=== PATIENT | male | born 1965 | race Hispanic/Latino ===

== ENCOUNTER 2017-10-12 11:49 | Emergency (ER) | payer MEDICARE ==
[~2017-10-12 11:49] MED LIST: ACET1TAB25 PO; ASPI-891 PO; CYCL10TA7 PO; DULO60CA63 PO; GLIP-196 PO; LABE100T PO; LISI-613 PO; METF500T6 PO; NAPR250T4 PO; OMEP40CA37 PO; PROM25TA7 PO
[2017-10-12] MEDS ORDERED: ACETAMINOPHEN-CODEINE 300/30MG TAB ONE (12:20)
== END 2017-10-12 12:38 | disposition home or self-care (01) ==
LOC: EDH 11:49
DX: E11.621 Type 2 diabetes mellitus with foot ulcer (principal); L97.429 Non-pressure chronic ulcer of left heel and midfoot with unspecified severity; I10 Essential (primary) hypertension; Z98.84 Bariatric surgery status; Z87.891 Personal history of nicotine dependence
CPT/HCPCS: 73620

== ENCOUNTER 2017-11-09 18:14 | Emergency (ER) | payer MEDICARE ==
[~2017-11-09 18:14] MED LIST changes: -LABE100T PO; +LABE100T5 PO
[2017-11-09] MEDS ORDERED: ACETAMINOPHEN-CODEINE 300/30MG TAB ONE (18:29)
[2017-11-09 18:57] LABS: BASOPHILS % (AUTO) 1.1 % (0.0-5.0); EOSINOPHILS % (AUTO) 5.9 % (0.0-8.0); HEMATOCRIT 32.4 % (42-54); MEAN CORPUSCULAR HEMOGLOBIN 28.8 pg (27.0-33.0); MEAN CORPUSCULAR HGB CONC 33.2 g/dL (32.0-36.0); MEAN CORPUSCULAR VOLUME 86.8 fL (79-99); MONOCYTES % (AUTO) 6.6 % (3.0-13.0); NEUTROPHILS % (AUTO) 56.4 % (40.0-77.0); PLATELET COUNT (AUTO) 141 K/uL (130-400); RED BLOOD CELL COUNT(AUTO) 3.74 MIL/uL (4.50-6.20); RED CELL DISTRIBUTION WIDTH 13.6 % (11.0-15.5); WHITE BLOOD COUNT (AUTO) 4.5 K/uL (4.8-10.8)
[2017-11-09 19:07] LABS: CARBON DIOXIDE 31 mmol/L (21-32); CHLORIDE 107 mmol/L (101-111); CREATININE 0.8 mg/dL (0.5-1.5); GLOMERULAR FILTR. RATE CALC 107 mL/min (>60); GLUCOSE,RANDOM 159 mg/dL (70-105); POTASSIUM 3.4 mmol/L (3.5-5.1); SODIUM SERUM 142 mmol/L (136-145); UREA NITROGEN, BLOOD 14 mg/dL (7-18)
[2017-11-09 19:12] LABS: ALANINE AMINOTRANSFERASE 20 U/L (12-78); ALBUMIN 3.2 g/dL (3.5-5.0); ASPARTATE AMINOTRANSFERASE 22 U/L (10-37); BILIRUBIN,TOTAL 0.2 mg/dL (0.2-1.0); TOTAL PROTEIN, SERUM 6.6 g/dL (6.0-8.3)
[2017-11-09 19:13] LABS: CRP QUANTITATIVE < 2.00 mg/L (0.00-9.0)
[2017-11-09 20:05] LABS: ERYTHROCYTE SEDIMENTATION RATE 17 MM/HR (0-15)
== END 2017-11-09 20:27 | disposition home or self-care (01) ==
LOC: EDH 18:14
DX: L89.629 Pressure ulcer of left heel, unspecified stage (principal); I10 Essential (primary) hypertension; E11.9 Type 2 diabetes mellitus without complications; F32.9 Major depressive disorder, single episode, unspecified
CPT/HCPCS: 36415; 73630; 80053; 85025; 85651; 86140; 87040

== ENCOUNTER 2018-10-06 16:18 | Emergency (ER) | payer MEDICARE ==
[~2018-10-06 16:18] MED LIST changes: +METF-444 PO; -METF500T6 PO
== END 2018-10-06 17:43 | disposition home or self-care (01) ==
LOC: EDH 16:18
DX: S80.02XA Contusion of left knee, initial encounter (principal); I10 Essential (primary) hypertension; E11.9 Type 2 diabetes mellitus without complications; F32.9 Major depressive disorder, single episode, unspecified; W01.198A Fall on same level from slipping, tripping and stumbling with subsequent striking against other object, initial encounter; Y93.89 Activity, other specified; Y92.009 Unspecified place in unspecified non-institutional (private) residence as the place of occurrence of the external cause; Y99.8 Other external cause status
CPT/HCPCS: 73562; 73590

== ENCOUNTER 2020-07-24 06:33 | Emergency (ER) | payer MEDICARE ==
[~2020-07-24 06:33] MED LIST changes: +CYCL-309 PO; -CYCL10TA7 PO; -DULO60CA63 PO; +DULO60CA64 PO; -LISI-613 PO; +LISI20TA24 PO; +NAPR-1196 PO; -NAPR250T4 PO; +OMEP40CA21 PO; -OMEP40CA37 PO
[2020-07-24] MEDS ORDERED: ONDANSETRON 4MG INJ ONE (10:15)
[2020-07-24 10:28] LABS: BASOPHILS % (AUTO) 0.4 % (0.0-5.0); LYMPHOCYTES % (AUTO) 14.1 % (21.0-51.0); MEAN CORPUSCULAR HEMOGLOBIN 28.1 pg (27.0-33.0); MEAN CORPUSCULAR HGB CONC 33.2 g/dL (32.0-36.0); MEAN CORPUSCULAR VOLUME 84.7 fL (79-99); MONOCYTES % (AUTO) 4.9 % (3.0-13.0); NEUTROPHILS % (AUTO) 78.4 % (40.0-77.0); PLATELET COUNT (AUTO) 171 K/uL (130-400); RED BLOOD CELL COUNT(AUTO) 4.37 MIL/uL (4.50-6.20); RED CELL DISTRIBUTION WIDTH 14.1 % (11.0-15.5); WHITE BLOOD COUNT (AUTO) 5.1 K/uL (4.8-10.8)
[2020-07-24 10:39] LABS: CREATININE 0.9 mg/dL (0.5-1.5); POTASSIUM 3.7 mmol/L (3.5-5.1)
[2020-07-24] MEDS ORDERED: DEXAMETHASONE SOD PHOSPHATE 10MG/ML 1ML VIAL ONE (10:40)
[2020-07-24 10:44] LABS: ALBUMIN 4.1 g/dL (3.5-5.0); BILIRUBIN,TOTAL 0.4 mg/dL (0.2-1.0); TOTAL PROTEIN, SERUM 7.5 g/dL (6.0-8.3)
[2020-07-24] MEDS ORDERED: AZITHROMYCIN 250 MG TABLET PO ONE (15:09)
== END 2020-07-24 15:52 | disposition home or self-care (01) ==
LOC: EDH 06:33
DX: J20.9 Acute bronchitis, unspecified (principal); E66.2 Morbid (severe) obesity with alveolar hypoventilation
CPT/HCPCS: 36415; 71045; 80053; 84484; 85025; 87804 ×2; 93005; 96374; 96375; 99285; J1100; J2405; 96372

== ENCOUNTER 2022-10-04 15:12 | Emergency (ER) | payer OTHER, MEDICARE ==
[~2022-10-04] VITALS: Ht 182.9 cm; Wt 108.9 kg
[~2022-10-04 15:12] MED LIST changes: +ACET-2079 PO; -ACET1TAB25 PO; +CIPR-278 PO; -LABE100T5 PO; +LABE100T7 PO; +ONDA4TAB10 PO
[2022-10-04] MEDS ORDERED: 0.9%NACL 1000ML 1,000 ML IV ONE (16:00)
[2022-10-04] MEDS ORDERED: ONDANSETRON 4MG INJ IVP ONE (16:00)
[2022-10-04 16:08] LABS: BASOPHILS % (AUTO) 0.4 % (0.0-5.0); EOSINOPHILS % (AUTO) 0.2 % (0.0-8.0); HEMATOCRIT 42.5 % (42-54); LYMPHOCYTES % (AUTO) 12.9 % (21.0-51.0); MEAN CORPUSCULAR HEMOGLOBIN 29.1 pg (27.0-33.0); MEAN CORPUSCULAR HGB CONC 33.9 g/dL (32.0-36.0); MONOCYTES % (AUTO) 3.3 % (3.0-13.0); PLATELET COUNT (AUTO) 159 K/uL (130-400); RED BLOOD CELL COUNT(AUTO) 4.94 MIL/uL (4.50-6.20); RED CELL DISTRIBUTION WIDTH 11.8 % (11.0-15.5); WHITE BLOOD COUNT (AUTO) 5.2 K/uL (4.8-10.8)
[2022-10-04 16:25] LABS: CREATININE 0.8 mg/dL (0.5-1.5); POTASSIUM 3.1 mmol/L (3.5-5.1)
[2022-10-04 16:34] LABS: ALBUMIN 3.9 g/dL (3.5-5.0); TOTAL PROTEIN, SERUM 7.5 g/dL (6.0-8.3)
[2022-10-04 16:51] LABS: APPEARANCE,URINE CLEAR (CLEAR); BILIRUBIN,URINE NEGATIVE (NEGATIVE); COLOR,URINE LIGHT-YELLOW (YELLOW); GLUCOSE, URINE (UA) NEGATIVE (NEGATIVE); KETONES,URINE NEGATIVE (NEGATIVE); LEUKOCYTE ESTERASE ,URINE NEGATIVE Leu/uL (NEGATIVE); NITRATE,URINE NEGATIVE (NEGATIVE); OCCULT BLOOD,URINE NEGATIVE (NEGATIVE); PH,URINE 7.5 (5.0-8.0); PROTEIN,URINE NEGATIVE (NEGATIVE)
[2022-10-04] MEDS ORDERED: ACETAMINOPHEN 500 MG TABLET PO ONE (17:30)
[2022-10-04 18:39] VITALS: BP 166/76
== END 2022-10-04 18:40 | disposition left against medical advice (07) ==
LOC: EDH 15:12
DX: R11.2 Nausea with vomiting, unspecified (principal); R53.1 Weakness
CPT/HCPCS: 99284; 96374; 96361; 84484; 80053; 85025; 83605; 81003; 36415; 93005; J7030; J2405

== ENCOUNTER → 2022-11-02 | Outpatient (CLI) | payer OTHER, MEDICARE | END | disposition home or self-care (01) | LOC: RAH 10:31 | PROVIDERS: ATTEND Internal Medicine | DX: K44.9 Diaphragmatic hernia without obstruction or gangrene (principal); K21.9 Gastro-esophageal reflux disease without esophagitis; K22.2 Esophageal obstruction; R13.10 Dysphagia, unspecified; R14.0 Abdominal distension (gaseous); R11.2 Nausea with vomiting, unspecified | CPT/HCPCS: 74240 ==

== ENCOUNTER → 2024-05-26 | Outpatient (CLI) | payer OTHER, MEDICARE ==
[~2024-05-26] MED LIST changes: +AEC81 PO; -ASPI-891 PO; +CALC3.8S NS; -CIPR-278 PO; -CYCL-309 PO; +DULO30CA52 PO; -DULO60CA64 PO; +ERGO500093 PO; +FAMO20TA8 PO; +GADOTERATE MEGLUMINE 10 MMOL/20 ML VIAL IV ONE; -GLIP-196 PO; -LABE100T7 PO; -LISI20TA24 PO; -METF-444 PO; -NAPR-1196 PO; -ONDA4TAB10 PO; +ROSU40TA88 PO; +TAMS-1 PO
--- NOTE | 2024-05-26 11:58 | HMCIMG ---
US ARTERIAL UNILA LOW EXT DUPL HISTORY: Cellulitis COMPARISON: None TECHNIQUE: Bilateral lower extremity arterial Doppler ultrasound study was performed. FINDINGS: Normal triphasic arterial waveforms are noted in the left common femoral, deep femoral, superficial femoral, popliteal arteries. Abnormal monophasic arterial waveforms with hyperemic flow are seen in the left anterior tibial, posterior tibial and dorsalis pedal arteries. On the left, the peak systolic velocity of the common femoral artery is 172 cm/s, the proximal femoral artery is 162 cm/s, the mid femoral artery is 109 cm/s, the distal femoral artery is 53 cm/s, the proximal popliteal artery is 126 cm/s, the distal popliteal artery is 159 cm/s, the anterior tibial artery is 163 cm/s, the posterior tibial artery artery is 164 cm/s,and the dorsalis pedal artery is 138 cm/s. IMPRESSION: 1. Atherosclerotic disease. 2. Abnormal monophasic arterial waveforms with hyperemic flow are seen in the left anterior tibial, posterior tibial and dorsalis pedal arteries.
--- NOTE | 2024-05-26 15:10 | HMCIMG ---
MR TIBFIB LEFT WWO HISTORY: Cellulitis COMPARISON: None TECHNIQUE: MRI of the left tibia and fibula was performed utilizing multiple pulse sequences in axial, coronal and sagittal planes. Patient was given 20 cc of Clariscan through intravenous route. FINDINGS: No abnormal signal intensity or enhancement is seen of the visualized bony structure of the left tibia and fibula. Soft tissue swelling is seen. This is a limited study due to motion artifacts and poor signal intensity and extensive artifacts. No definite fracture or dislocation is seen. IMPRESSION: 1. Suboptimal study. No definite abnormal signal intensity is seen of the visualized bony structure. Soft tissue swelling is seen.
== END | disposition home or self-care (01) ==
LOC: RAH 10:19
PROVIDERS: ATTEND Internal Medicine
DX: L03.116 Cellulitis of left lower limb (principal); M79.89 Other specified soft tissue disorders
CPT/HCPCS: 73720; 93926; A9575

== ENCOUNTER → 2024-06-06 | Outpatient (CLI) | payer OTHER, MEDICARE ==
--- NOTE | 2024-06-06 16:46 | HMCIMG ---
MR ANKLE LEFT WWO HISTORY: No additional history given. COMPARISON: None TECHNIQUE: MRI of the left ankle was performed utilizing multiple pulse sequences in axial, coronal and sagittal planes. Patient was given 20 cc of Clariscan through intravenous route. FINDINGS: Normal signal intensity is seen of the visualized bony structure. Tiny joint effusion is seen. No definite focal mass lesion is seen. Minimal soft tissue swelling is seen suggestive cellulitis. The study is limited due to poor signal in this study. There are small hyperintense foci with mild enhancement noted in the distal tibia, distal fibula, talus and calcaneus. No definite soft tissue mass is seen. If there is clinical suspicion for bone metastases, bone scan may be helpful. No definite MR evidence of osteomyelitis is seen otherwise. No evidence of soft tissue swelling is seen. No rupture or Achilles tendon is seen. Posterior tibialis, flexor hallucis longus and flexor digitorum longus tendons are intact. The peroneus longus and brevis tendons are intact. Anterior talofibular ligament and calcaneofibular ligaments are intact. IMPRESSION: 1. Minimal soft tissue swelling is seen suggestive cellulitis. The study is limited due to poor signal in this study. There are small hyperintense foci with mild enhancement noted in the distal tibia, distal fibula, talus and calcaneus. No definite soft tissue mass is seen. If there is clinical suspicion for bone metastases, bone scan may be helpful. No definite MR evidence of osteomyelitis is seen otherwise.
== END | disposition home or self-care (01) ==
LOC: RAH 14:00
PROVIDERS: ATTEND Internal Medicine
DX: M25.472 Effusion, left ankle (principal); L03.116 Cellulitis of left lower limb; E11.628 Type 2 diabetes mellitus with other skin complications
CPT/HCPCS: 73723; A9575

== ENCOUNTER → 2024-06-14 | Outpatient (CLI) | payer OTHER, MEDICARE ==
--- NOTE | 2024-06-14 15:07 | HMCIMG ---
MR FOOT LEFT WWO REASON: PAIN COMPARISON: None TECHNIQUE: Routine imaging protocol was performed. Images were also obtained to pre and post gadolinium contrast infusion, Clariscan 20 cc. FINDINGS: Exam is somewhat limited by loss of fat saturation distally, on a technical basis. Metatarsals and phalanges appear unremarkable. There are no focal areas of osseous marrow edema. There are no focal areas of abnormal contrast enhancement. There is no evidence of abscess or gas forming infection. IMPRESSION: 1. No evidence of abscess or osteomyelitis.
== END | disposition home or self-care (01) ==
LOC: RAH 12:49
PROVIDERS: ATTEND Internal Medicine
DX: L03.90 Cellulitis, unspecified (principal)
CPT/HCPCS: 73720; A9575